=== PATIENT | male | born 1995 | race Two or more races ===

== ENCOUNTER 2023-02-17 17:29 | Emergency (ER) | payer OTHER ==
[~2023-02-17] VITALS: Ht 167.6 cm; Wt 81.6 kg
[2023-02-17 18:55] LABS: HEMATOCRIT 46.6 % (39.0-48.0); HEMOGLOBIN 16.1 g/dL (13-16.00); MEAN CORPUSCULAR HEMOGLOBIN 28.4 pg (27.00-32.0); MEAN CORPUSCULAR HGB CONC 34.6 g/dl (32.0-36.0); PLATELET COUNT 154 K/uL (150-450); RED BLOOD COUNT 5.68 M/uL (4.00-6.00); RED CELL DISTRIBUTION WIDTH 12.9 % (11.5-14.5)
[2023-02-17 19:13] LABS: CALCIUM 8.8 mg/dL (8.5-10.1); CREATININE SERUM 1.28 mg/dL (0.70-1.30); GFR 67.93; POTASSIUM 3.49 mEq/L (3.5-5.1)
[2023-02-17 19:18] LABS: PH,URINE 6.5 (5.0-8.0); URINE APPEARANCE Clear; URINE BILIRRUBIN Negative (NEGATIVE); URINE BLOOD Trace; URINE COLOR Yellow; URINE LEUKOCYTE Negative; URINE NITRATE Negative; URINE PROTEIN 30 (NEGATIVE); URINE UROBILINOGEN 0.2 E.U./dl
[2023-02-17 19:22] LABS: URINE EPITHELIAL CELLS 1.5 uL (0.0-38.8); URINE RBC 31.7 uL (0.0-20.8); URINE WBC 4.1 uL (0.0-23.2)
[2023-02-17 19:39] LABS: URINE GLUCOSE 500 MG/DL (NEGATIVE)
[2023-02-18] MEDS ORDERED: METRONIDAZOLE500 MG PO (04:23)
[2023-02-18] MEDS ORDERED: CIPRO500 MG PO (04:23)
== END 2023-02-18 04:34 ==
LOC: ER 17:29
PROVIDERS: Emergency Medicine
DX: K52.9 Noninfective gastroenteritis and colitis, unspecified (principal)